=== PATIENT | male | born 1980 | race African-American/Black ===

== ENCOUNTER 2016-12-19 11:17 | Emergency (ER) | payer OTHER ==
[2016-12-19] MEDS ORDERED: HYDROmorphone 1 MG/ML 1 ML SYRINGE IM STA (11:51)
[2016-12-19] MEDS ORDERED: ONDANSETRON ODT 4 MG TAB PO STA (11:51)
[2016-12-19] MEDS ORDERED: ceFAZolin 1,000 MG in DEXTROSE/WATER 1 50ML.BAG IVPB STA (11:55)
[2016-12-19] MEDS ORDERED: ONDANSETRON 4 MG/2 ML VIAL IVP STA (11:55)
[2016-12-19] MEDS: HYDROmorphone 1 MG/ML 1 ML SYRINGE IVP STA ×3 (12:00→13:39)
--- NOTE | 2016-12-19 12:14 | ED ---
General Adult HPI <Lew Xavier - Last Filed: 12/19/16 13:01> - General Source: patient, RN notes reviewed Mode of arrival: EMS Limitations: no limitations <Clayton Snow - Last Filed: 12/19/16 14:00> - General Chief complaint: Wound/Laceration Stated complaint: cut finger off Time Seen by Provider: 12/19/16 11:35 - History of Present Illness Initial comments: Patient is a 36-year-old male who presents emergency room today with a chief complaint of a injury to the left hand that occurred just prior to arrival. Does admit that he was using a table saw when his hand got caught by the blade causing lacerations to the first, second, third digits. Patient states his tetanus is up-to-date. He admits to pain locally to these areas. He denies any other complaints or symptoms at this time. Patient denies any recent fever, chills, shortness of breath, chest pain, back pain, abdominal pain, nausea or vomiting, dysuria or hematuria, constipation or diarrhea, headaches or visual changes, or any other complaints. (Clayton Snow) - Related Data Previous Rx's Medication Instructions Recorded Cephalexin [Keflex] 500 mg PO Q12HR 10 Days 12/19/16 Hydrocodone/Acetaminophen [[place] 1 each PO Q6HR PRN #20 tab 12/19/16 5-325] Allergies Allergy/AdvReac Type Severity Reaction Status Date / Time No Known Allergies Allergy Verified 12/19/16 12:53 Review of Systems ROS Other: All systems not noted in ROS Statement are negative. <Lew Xavier - Last Filed: 12/19/16 13:01> ROS Other: All systems not noted in ROS Statement are negative. <Clayton Snow - Last Filed: 12/19/16 14:00> ROS Statement: Those systems with pertinent positive or pertinent negative responses have been documented in the HPI. Past Medical History Past Medical History: No Reported History History of Any Multi-Drug Resistant Organisms: None Reported Past Surgical History: No Surgical Hx Reported Past Psychological History: No Psychological Hx Reported Smoking Status: Current every day smoker Past Alcohol Use History: None Reported Past Drug Use History: None Reported <Clayton Snow - Last Filed: 12/19/16 14:00> General Exam <Lew Xavier - Last Filed: 12/19/16 13:01> Limitations: no limitations <Clayton Snow - Last Filed: 12/19/16 14:00> - General Exam Comments Initial Comments: General: The patient is awake and alert, in moderate distress. Neck: The neck is supple, there is no tenderness or JVD. Cardiovascular: There is a regular rate and rhythm. No murmur, rub or gallop is appreciated. Respiratory: Lungs are clear to auscultation, respirations are non-labored, breath sounds are equal. No wheezes, stridor, rales, or rhonchi. Musculoskeletal: Patient shows good range of motion of the first and third digits. Has decreased range of motion of the second digit of the left hand. Open fracture at the PIP joint. No active bleeding. Strength 5/5 in all other areas. Pulses equal bilaterally 2+. Neurological: A&O x 3. CN II-XII intact, There are no obvious motor or sensory deficits. Coordination appears grossly intact. Speech is normal. Skin: Patient does have a laceration to the volar lateral aspect of the left thumb measuring approximately 1.5 cm. No active bleeding. Does have laceration to the lateral aspect of the third digit measuring approximately 1.5 cm no active bleeding. Does have a laceration over the posterior aspect of the second digit of the left hand measuring approximately 3 cm. Psychiatric: Normal mood and affect. (Clayton Snow) Course <Lew Xavier - Last Filed: 12/19/16 13:01> <Clayton Snow - Last Filed: 12/19/16 14:00> Vital Signs 12/19/16 11:26 Temperature 98.2 F Pulse Rate 82 Respiratory 20 Rate Blood Pressure 159/75 O2 Sat by Pulse 99 Oximetry - Reevaluation(s) Reevaluation #1: 12/19/16 13:01 Patient was earlier seen by myself. Patient does have lacerations to the middle finger and thumb. There is extensive laceration to the index finger with exposed bone and joint and tendon. Unable to move finger. Cap refill less than 2 seconds. Patient states he is able to feel pressure. Orthopedics was consulted secondary to concern for need for surgical repair. (Lew Xavier) 12/19/16 12:45 case was seen at bedside by attending physician Dr. Xavier. Was discussed about possibility of needing OR. case discussed with orthopedics physician certified ophthalmic surgical assistant Nargis Reddy who recommends closing the lacerations to the first and third digits. Recommends a wet-to-dry dressing with splint over the second digit. Recommends patient coming to the office for further evaluation and closure. Patient been given a dose of IV antibiotics here in the emergency room. Patient does have family that we'll be able to take him [facility]. 12/19/16 13:51 Patient was seen here in the emergency room nurse practitioner Rosmery for Dr. Leiva. She did discuss case with orthopedic surgeon. States the patient may follow-up in the office tomorrow. They recommend a wet-to-dry dressing over the second digit. Patient's first visit was closed here the emergency room with sutures. Patient's left finger was reduced straightened out and splinted here in the emergency room. Cap refill less than 2 seconds. Orthopedics states they will see patient in the office tomorrow morning at 8 AM. Patient has been given dose of Biaxin emergency room. Will be given antibiotics and pain medicine to go home. Advised return if any symptoms increase worsen or for any other concerns. (Clayton Snow) Procedures <Lew Xavier - Last Filed: 12/19/16 13:01> <Clayton Snow - Last Filed: 12/19/16 14:00> - Procedures Initial comment: First laceration of the first digit measuring approximately 2 cm in total length. The skin was anesthetized with 1% lidocaine at the head of the metacarpal. The laceration was then cleansed with Betadine and irrigated with normal saline. The wound was inspected, and there was no evidence of injury to deep structures. No foreign body was noted in the wound. A total of 5 skin sutures were placed utilizing 4-0 nylon. Second laceration to the third digit of the left hand measuring approximately 1 cm. Superficial laceration that does not require any sutures or closure. Betadine placed over top after heavily irrigated. Sterile dressing with nonstick place. Third laceration to the second digit of the left hand. Open fracture involved. Irrigated with saline and cleaned. Nonstick sterile wet-to-dry dressing placed. Patient placed in a finger splint. (Clayton Snow) Medical Decision Making - Lab Data Result diagrams: 12/19/16 12:12 12/19/16 12:12 <Lew Xavier - Last Filed: 12/19/16 13:01> - Lab Data Result diagrams: 12/19/16 12:12 12/19/16 12:12 <Clayton Snow - Last Filed: 12/19/16 14:00> - Medical Decision Making Patient was seen here in emergency room by myself and physician Dr. Jang. Case was discussed with orthopedics who also saw patient here in the emergency room and recommends that patient can be seen in the office tomorrow. Patient's x- ray of the left hand does show a comminuted fracture of the proximal phalanx of the second digit. They've recommended that patient be placed in a sterile dressing and follow-up tomorrow. Patient has been given dose of antibiotics. We'll medication and antibiotics to go home with. Advised to return for any other concerns. (Clayton Snow) - Lab Data Lab Results 12/19/16 12/19/16 12/19/16 Range/Units 12:12 12:12 12:12 WBC 7.0 (3.8-10.6) k/uL RBC 4.80 (4.30-5.90) m/uL Hgb 15.6 (13.0-17.5) gm/dL Hct 45.5 (39.0-53.0) % MCV 94.8 (80.0-100.0) fL MCH 32.5 (25.0-35.0) pg MCHC 34.3 (31.0-37.0) g/dL RDW 13.2 (11.5-15.5) % Plt Count 242 (150-450) k/uL Neutrophils % 59 % Lymphocytes % 30 % Monocytes % 5 % Eosinophils % 2 % Basophils % 0 % Neutrophils # 4.1 (1.3-7.7) k/uL Lymphocytes # 2.1 (1.0-4.8) k/uL Monocytes # 0.4 (0-1.0) k/uL Eosinophils # 0.2 (0-0.7) k/uL Basophils # 0.0 (0-0.2) k/uL PT 11.8 (9.0-12.0) sec INR 1.2 (<1.1) APTT 25.8 (22.0-30.0) sec Sodium 141 (137-145) mmol/L Potassium 4.2 (3.5-5.1) mmol/L Chloride 106 (98-107) mmol/L Carbon Dioxide 26 (22-30) mmol/L Anion Gap 9 mmol/L BUN 14 (9-20) mg/dL Creatinine 1.00 (0.66-1.25) mg/dL Est GFR (MDRD) Af Amer >60 (>60 ml/min/1.73 sqM) Est GFR (MDRD) Non-Af >60 (>60 ml/min/1.73 sqM) Glucose 94 (74-99) mg/dL Calcium 9.7 (8.4-10.2) mg/dL Total Bilirubin 1.3 (0.2-1.3) mg/dL AST 22 (17-59) U/L ALT 28 (21-72) U/L Alkaline Phosphatase 70 (38-126) U/L Total Protein 7.3 (6.3-8.2) g/dL Albumin 4.5 (3.5-5.0) g/dL Disposition <Lew Xavier - Last Filed: 12/19/16 13:01> Time of Disposition: 12:56 <Clayton Snow - Last Filed: 12/19/16 14:00> Clinical Impression: Laceration, Open fracture of finger of left hand, Tendon laceration Disposition: HOME SELF-CARE Condition: Stable Instructions: Laceration (ED) Additional Instructions: Please leave dressing in place until follow-up with orthopedics tomorrow at 8 AM as discussed here in the emergency room. Please use pain medication and antibiotics as prescribed. Please return to emergency room if any symptoms increase or worsen or for any other concerns. Prescriptions: Cephalexin [Keflex] 500 mg PO Q12HR 10 Days Hydrocodone/Acetaminophen [[place] 5-325] 1 each PO Q6HR PRN #20 tab PRN Reason: Pain Referrals: None,Stated [Primary Care Provider] - 1-2 days Alexis Leiva DO [Doctor of Osteopathic Medicine] - 1-2 days
--- NOTE | 2016-12-19 12:20 | XR ---
EXAMINATION TYPE: XR hand complete LT DATE OF EXAM: 12/19/2016 12:08 PM COMPARISON: NONE HISTORY: 36-year-old male second digit pain after caught on table saw. TECHNIQUE: 3 views FINDINGS: There is comminuted fracture involving the head and neck of the second proximal phalanx. Additional f racture along the dorsal base of the second middle phalanx. The PIP joint is dislocated with the prox imal phalangeal head displaced volarly and dislocation dorsally. There is associated soft tissue inju ry and man going of the index finger. Additional increased soft tissue injury to the pulp of the thumb with tiny comminuted fractures of th e palmar tuft. IMPRESSION: 1. Soft tissue injury to the index finger and to a lesser extent to the pulp of the thumb. 2. The index finger is mangled with displaced comminuted fractures of the second proximal phalangeal head and neck. The phalangeal head is displaced volarly. The PIP joint is dislocated dorsally. Additi onal small fracture along the dorsal aspect of the second middle phalangeal base. 3. Tiny comminuted fractures along the palmar tuft of the first distal phalanx.
[2016-12-19 12:25] LABS: Basophils % (A) 0 %; CH 31.8; CHCM 33.7; Eosinophils # (A) 0.2 k/uL (0-0.7); Eosinophils % (A) 2 %; HCT 45.5 % (39.0-53.0); HDW 2.32; HGB 15.6 gm/dL (13.0-17.5); Luc # (Auto) 0.22; Luc % (Auto) 3; Lymphocytes # (A) 2.1 k/uL (1.0-4.8); Lymphocytes % (A) 30 %; MCH 32.5 pg (25.0-35.0); MCHC 34.3 g/dL (31.0-37.0); MCV 94.8 fL (80.0-100.0); Mean Platelet Volume 6.8; Monocytes # (A) 0.4 k/uL (0-1.0); Monocytes % (A) 5 %; Neutrophils # (A) 4.1 k/uL (1.3-7.7); Neutrophils % (A) 59 %; RDW 13.2 % (11.5-15.5); WBC (Perox) 6.86
[2016-12-19 12:33] LABS: ALT 28 U/L (21-72); AST 22 U/L (17-59); Alkaline Phosphatase 70 U/L (38-126); Anion Gap 9 mmol/L; Blood Urea Nitrogen 14 mg/dL (9-20); Calcium 9.7 mg/dL (8.4-10.2); Carbon Dioxide 26 mmol/L (22-30); Chloride 106 mmol/L (98-107); Glucose 94 mg/dL (74-99); Non-African American GFR(MDRD) >60 (>60 ml/min/1.73 sqM); Potassium 4.2 mmol/L (3.5-5.1); Sodium 141 mmol/L (137-145); Total Bilirubin 1.3 mg/dL (0.2-1.3); Total Protein 7.3 g/dL (6.3-8.2)
[2016-12-19 12:35] LABS: INR 1.2 (<1.1); Partial Thromboplastin Time 25.8 sec (22.0-30.0); Prothrombin Time 11.8 sec (9.0-12.0)
[2016-12-19] MEDS ORDERED: CEPHALEXIN 500MG STARTER PACK 4 CAP BTL PO STA (14:02)
[2016-12-19] MEDS ORDERED: HYDROcodone/APAP 5-325MG 1 EACH TAB PO STA (14:02)
[2016-12-19 14:29] VITALS: BP 139/83; PULSE 77; RESP 18; TEMP 98.1
== END 2016-12-19 14:28 | disposition home or self-care (01) ==
LOC: EC 11:17
DX: S62.611B Displaced fracture of proximal phalanx of left index finger, initial encounter for open fracture (principal); S61.012A Laceration without foreign body of left thumb without damage to nail, initial encounter; S61.213A Laceration without foreign body of left middle finger without damage to nail, initial encounter; F17.200 Nicotine dependence, unspecified, uncomplicated; W45.8XXA Other foreign body or object entering through skin, initial encounter
CPT/HCPCS: 99284; 12001; 96374; 96376; 96375; 96372; 36415; 80053; 85025; 85610; 85730; 73130; J2405; J1170; J0690

== ENCOUNTER 2016-12-20 12:37 | Day surgery (SDC) | payer OTHER ==
[2016-12-20 13:11] VITALS: BMI 20.9
[2016-12-20 13:13] VITALS: RESP 16; TEMP 98.6
[2016-12-20] MEDS ORDERED: LIDOCAINE 1% 20 ML VIAL (10MG/ML) FOR IV START INTRADERMA ONE (13:20)
[2016-12-20] MEDS ORDERED: LACTATED RINGERS 1,000 ML IV ONE (13:20)
[2016-12-20] MEDS ORDERED: MIDAZOLAM 2 MG/2 ML VIAL IV ONE (13:45)
[2016-12-20] MEDS ORDERED: ceFAZolin 2 GM in SODIUM CHLORIDE 0.9% 100 ML IVPB STA (14:12)
[2016-12-20] MEDS ORDERED: LIDOCAINE 2%-EPI 1:100,000 20 ML VIAL ONE (14:40)
[2016-12-20] MEDS ORDERED: MIDAZOLAM 2 MG/2 ML VIAL ONE (14:40)
[2016-12-20] MEDS ORDERED: ROPIVACAINE 5 MG/ML 30 ML VIAL ONE (14:40)
[2016-12-20] MEDS ORDERED: fentaNYL (PF) 50 MCG/ML 2 ML AMP ONE (14:40)
--- NOTE | 2016-12-20 15:46 | XR ---
EXAMINATION TYPE: XR finger LT, FL guidance operating room DATE OF EXAM: 12/20/2016 3:42 PM CLINICAL HISTORY: ORIF LEFT 2ND DIGIT ORIF LEFT 2ND DIGIT. 20 SEC FLUORO TIME. [address] WARREN.
[2016-12-20 16:51] VITALS: BP 98/62; PULSE 71
--- NOTE | 2016-12-21 10:58 | OP ---
DATE OF SERVICE: 12/20/2016 SURGEON: JUSTYN WARREN DO [employer] INSTALLER: PREOPERATIVE DIAGNOSIS: Table-saw laceration of the left thumb, index and middle fingers. POSTOPERATIVE DIAGNOSES: 1. Table-saw laceration of the left thumb, index and middle fingers. 2. Comminuted intra-articular open fracture proximal phalanx OF the PIP joint with multiple fragmentation (greater than 5 fragments) and instability. 3. Complete extensor tendon laceration at the PIP joint. 4. Complete flexor digitorum profundus AND flexor digitorum superficialis lacerations at zone 2 PIP joint. 5. Complex skin laceration tissue loss. 6. Complete laceration ulnar digital nerve and vessel. OPERATION: 1. Open reduction internal fixation proximal phalanx with intramedullary K-wire. 2. Reconstruction volar plate using flexor digitorum profundus tendon. 3. Repair of extensor tendon. 4. Repair of complex skin laceration. 5. Cleansing, but no repair needed for lacerations of the left thumb and middle fingers. ANESTHESIA: ESTIMATED BLOOD LOSS: SPECIMENS REMOVED: COMPLICATIONS: OPERATIVE FINDINGS: INDICATION: A 36-year-old man sustained a significant table saw injury yesterday. He was seen in the emergency room where the wounds were cleansed. His thumb and middle finger lacerations were repaired and he was stabilized until today's procedure. GROSS PATHOLOGY: The thumb laceration was transverse, volar distal to the insertion of the FPL. It was beyond on the level of digital nerve repair. It was stable and required no further treatment. The middle finger laceration was along the radial aspect and was superficial, it did not involve any tendon, bone or nerve. Neither these two lacerations show any signs of infection at this time and required gapping but cleansing, and the normal prepping of the procedure for today. The index finger sustained a significant laceration along the ulnar aspect of the joint to involve both extensor and volar surfaces. Extensor and flexor tendons were completely lacerated. The head of the proximal phalanx was comminuted and there was some extension into the joint. The condyles generally were intact. There was some involvement of the adjacent articular surface of the middle phalanx but this was bone loss and there was nothing to repair on this aspect. There was complete loss of the collateral ligament and volar plate stabilization. The digital nerve and vessel on this aspect were also completely lacerated and really were not repairable. Fortunately, there appeared to be adequate circulation from the opposite side. DESCRIPTION OF PROCEDURE: This 36-year-old man was taken to the operative suite, given an axillary block in the preop holding area by Department of Anesthesia, which worked very well. His hand was prepped and draped in the usual manner. It was elevated, exsanguinated and cuff was inflated to 250 mmHg. The thumb and middle lacerations were examined and again no repair was necessary. Attention was then turned to the index finger. Fortunately, the wound was tidy with no signs of significant contamination or signs of infection at this time. It was thoroughly irrigated and washed out. The fracture of the proximal phalanx was analyzed. There was no significant way to obtain firm internal fixation with plate and screws. Therefore, to repair the best I can do would be to line up the fracture longitudinally. K-wire was drilled through the proximal surface of the middle phalanx distally and brought out through the tip of the finger. It was then drilled retrograde across the main distal fracture fragment of the proximal phalanx, which was then lined up with the shaft of the proximal phalanx and the K-wire was advanced. This was done under C-arm fluoroscopy. After the position of the pin was confirmed as satisfactory and the clinical stability was also satisfactory, I then manually bent the pins slightly in flexion as this would be a better position for the joint long-term. I anticipate there is a significant chance of needing a joint fusion in the future because of the extent of the injury to the joint. The pin was then bent and cut off at the distal aspect. Attention was then turned to the soft tissue. There was significant wrist and extending his exposure proximally for an attempted any type of flexor tendon repair. Again, I anticipate probably going to end up with a joint fusion and therefore flexor tendon repair itself was potentially more risk than benefit. The sublimis tendons were lacerated at the joint level and the remnants were simply discarded. The profundus was able to span the joint, and I used this to create a volar capsule reconstruction. This was secured with 3-0 Monocryl suture. The extensor tendon was also repaired with 3-0 Monocryl suture. There was tissue loss at the digital nerve and vessel level. Grafting would have been necessary for repair. There appeared to be adequate circulation and the digital nerve function was relatively expandable on this aspect of the joint. The wound was then again thoroughly irrigated and tourniquet was released, perfusion of the distal finger was satisfactory with adequate capillary refill. Hemostasis was satisfactory. The complex skin laceration was trimmed of some of the shredded skin flaps from the blade and then the major skin flaps were loosely approximated with 5-0 nylon suture. There were some areas that are still going to require healing by secondary intention. This hand was then thoroughly cleansed and a soft, bulky dressing was applied with the thumb, index, and middle fingers. A splint was applied to the dorsal aspect of the middle and ring fingers for comfort. He was then taken to the recovery room in satisfactory condition.
== END 2016-12-20 17:06 | disposition home or self-care (01) ==
LOC: OR 12:37
PROVIDERS: ATTEND Orthopaedic Surgery Hand Surgery
DX: S62.611B Displaced fracture of proximal phalanx of left index finger, initial encounter for open fracture (principal); S66.321A Laceration of extensor muscle, fascia and tendon of left index finger at wrist and hand level, initial encounter; S66.121A Laceration of flexor muscle, fascia and tendon of left index finger at wrist and hand level, initial encounter; S64.491A Injury of digital nerve of left index finger, initial encounter; S61.012A Laceration without foreign body of left thumb without damage to nail, initial encounter; W31.2XXA Contact with powered woodworking and forming machines, initial encounter; Z79.2 Long term (current) use of antibiotics; Z79.891 Long term (current) use of opiate analgesic
CPT/HCPCS: 73140; 26735; 26410; 26356; C1713; J2250; J0690; J3010; J2795

== ENCOUNTER 2017-03-13 15:49 | Emergency (ER) | payer OTHER ==
[2017-03-13 15:52] VITALS: BP 123/80; PULSE 88; RESP 20; TEMP 98.2
[2017-03-13] MEDS ORDERED: PROPARACAINE 0.5% OPHTH DROPS 15 ML BTL BOTH EYES STA (15:57)
[2017-03-13] MEDS ORDERED: ERYTHROMYCIN 5 MG/GM OPHTH OINT 3.5 GM TUBE BOTH EYES STA (16:10)
--- NOTE | 2017-03-13 16:14 | ED ---
Eye Problem HPI - General Chief complaint: Eye Problems Stated complaint: eye injury Time Seen by Provider: 03/13/17 15:57 Source: patient, RN notes reviewed, old records reviewed Mode of arrival: ambulatory Limitations: no limitations - History of Present Illness Initial comments: 36-year-old male presents to the emergency Department chief complaint of right eye pain and irritation for the past day. Patient reports that somebody is fingernail scratches eye yesterday. Patient reports that he has been tenuous pain since then. Patient reports he does not wear glasses or contacts. Patient states that his eye has continued to drain and water all day today. Patient denies any fever or chills, chest pain, shortness. He reports that his vision is diminished due to the significant pain and swelling in the eye. - Related Data Previous Rx's Medication Instructions Recorded Cephalexin [Keflex] 500 mg PO Q12HR 10 Days 12/19/16 Hydrocodone/Acetaminophen [[place] 1 each PO Q6HR PRN #20 tab 12/19/16 5-325] HYDROcodone/APAP 5-325MG [[place] 1 tab PO Q6HR PRN #8 tab 03/13/17 5-325] Allergies Allergy/AdvReac Type Severity Reaction Status Date / Time No Known Allergies Allergy Verified 03/13/17 15:52 Review of Systems ROS Statement: Those systems with pertinent positive or pertinent negative responses have been documented in the HPI. ROS Other: All systems not noted in ROS Statement are negative. Past Medical History Past Medical History: No Reported History History of Any Multi-Drug Resistant Organisms: None Reported Past Surgical History: No Surgical Hx Reported Past Psychological History: No Psychological Hx Reported Smoking Status: Current every day smoker Past Alcohol Use History: None Reported Past Drug Use History: None Reported General Exam - General Exam Comments Initial Comments: 36-year-old male. No acute distress. Limitations: no limitations General appearance: alert, in no apparent distress Head exam: Present: atraumatic, normocephalic, normal inspection Eye exam: Present: normal appearance, PERRL, EOMI, conjunctival injection ( Right conjunctival injection.), other (Fluorescein eye exam was performed. Evidence of a corneal abrasion from the 12 o'clock position to the 2 o'clock position. Significant abrasion noted. No evidence of ulceration at this time.) . Absent: scleral icterus, periorbital swelling ENT exam: Present: normal exam, mucous membranes moist Neck exam: Present: normal inspection. Absent: tenderness, meningismus, lymphadenopathy Respiratory exam: Present: normal lung sounds bilaterally. Absent: respiratory distress, wheezes, rales, rhonchi, stridor Cardiovascular Exam: Present: regular rate, normal rhythm, normal heart sounds. Absent: systolic murmur, diastolic murmur, rubs, gallop, clicks GI/Abdominal exam: Present: soft, normal bowel sounds. Absent: distended, tenderness, guarding, rebound, rigid Extremities exam: Present: normal inspection, full ROM, normal capillary refill. Absent: tenderness, pedal edema, joint swelling, calf tenderness Back exam: Present: normal inspection Neurological exam: Present: alert, oriented X3, CN II-XII intact Psychiatric exam: Present: normal affect, normal mood Skin exam: Present: warm, dry, intact, normal color. Absent: rash Course Vital Signs 03/13/17 15:51 Temperature 98.2 F Pulse Rate 88 Respiratory 20 Rate Blood Pressure 123/80 O2 Sat by Pulse 100 Oximetry Medical Decision Making - Medical Decision Making 36-year-old male presents to the emergency Department chief complaint of right eye pain and irritation for the past day. Patient reports that somebody is fingernail scratches eye yesterday. Patient reports that he has been continuous pain since then. Patient reports he does not wear glasses or contacts. Patient states that his eye has continued to water all day today. Patient had fluorescein eye exam performed evidence of a significant corneal abrasion from the 10 o'clock position to the 2 o'clock position radiating up to the 12 o'clock position significant with a severe corneal abrasion. No evidence of a linear scratch. Patient was given erythromycin eye ointment. Patient will be also given a referral for an mechanic/welder. He will be given pain medication for tonight to help him fall asleep. Disposition Clinical Impression: Corneal abrasion Disposition: HOME SELF-CARE Condition: Good Instructions: Corneal Abrasion (ED) Additional Instructions: Patient advised to apply the eye ointment every 4 hours to the affected eye. Patient should follow-up with mechanic/welder within the next 1-2 days if symptoms continue to persist or worsen. Free patient should return if there is any alarming signs or symptoms that occur. Patient can also take the pain medication to help him fall asleep within the next 1-2 days. Prescriptions: HYDROcodone/APAP 5-325MG [[place] 5-325] 1 tab PO Q6HR PRN #8 tab PRN Reason: Pain Referrals: Gurjit Castañeda MD [Primary Care Provider] - 1-2 days Brayan Haji MD [STAFF PHYSICIAN] - 1-2 days Time of Disposition: 16:43
== END 2017-03-13 17:18 | disposition home or self-care (01) ==
LOC: EC 15:49
DX: S05.01XA Injury of conjunctiva and corneal abrasion without foreign body, right eye, initial encounter (principal); F17.200 Nicotine dependence, unspecified, uncomplicated; X58.XXXA Exposure to other specified factors, initial encounter
CPT/HCPCS: 99283

== ENCOUNTER → 2020-11-09 | Outpatient (CLI) | payer OTHER ==
--- NOTE | 2020-11-09 14:57 | XR ---
EXAMINATION TYPE: XR lumbar spine 3V DATE OF EXAM: 11/09/2020 Comparison: None Clinical History: 40-year-old male M54.5 back pain Findings: 5 lumbar type vertebral bodies. Minimal endplate spondylosis throughout. Some straightening of the no rmal lumbar lordosis. No vertebral compression collapse or malalignment. Impression: There may be very mild early degenerative disc disease changes given minimal endplate spondylosis. No vertebral compression collapse or malalignment.
== END ==
LOC: RADXRMAIN 10:52
PROVIDERS: ATTEND Family Medicine
DX: M47.816 Spondylosis without myelopathy or radiculopathy, lumbar region (principal)
CPT/HCPCS: 72100